=== PATIENT | male | born 1985 | race African-American/Black ===

== ENCOUNTER 2019-12-15 23:52 | Emergency (ER) | payer SELFPAY ==
[2019-12-16] MEDS ORDERED: Dexamethasone 4 mg/ml Vial ONE (00:14)
== END 2019-12-16 00:13 | disposition home or self-care (01) ==
LOC: BURERS 23:52
DX: J45.901 Unspecified asthma with (acute) exacerbation (principal); F17.210 Nicotine dependence, cigarettes, uncomplicated; Z79.51 Long term (current) use of inhaled steroids
CPT/HCPCS: 94640; J1100; J7620

== ENCOUNTER 2021-11-05 01:51 | Emergency (ER) | payer SELFPAY ==
[2021-11-05 02:29] LABS: #Basophils 0.2 thou/uL (0.0-0.2); #Eosinphils 0.3 thou/uL (0.0-0.7); #Lymphocytes 2.4 thou/uL (1.20-3.40); #Monocytes 1.1 thou/uL (0.11-0.59); #Neutrophils 12.4 thou/uL (1.40-6.50); %Eosinophils 1.8 % (0.0-10.0); %Lymphocytes 14.4 % (21.0-51.0); %Monocytes 6.9 % (0.0-10.0); %Neutrophils 75.9 % (42.0-75.0); Hemoglobin 13.2 g/dL (14.0-18.0); Mean Corpuscular HGB CONC 32.6 g/dL (32.0-36.0); Mean Corpuscular Volume 91.9 fL (78.0-98.0); Mean Platelet Volume 7.4 fL (7.4-10.4); Platelet Count 303 thou/uL (130-400); RBC Distribution Width 13.6 % (11.5-14.5); Red Blood Cell (RBC) Count 4.41 mill/uL (4.70-6.10); White Blood Cell (WBC) Count 16.3 thou/uL (4.8-10.8)
[2021-11-05] MEDS ORDERED: Acetaminophen 500 MG TAB ONE (02:41)
[2021-11-05] MEDS ORDERED: Cefepime 2 GM VIAL ONE (02:41)
[2021-11-05] MEDS ORDERED: Ketorolac Tromethamine 30 MG/ML VIAL ONE (02:41)
[2021-11-05 02:45] LABS: ALT (SGPT) 34 U/L (8-55); AST (SGOT) 30 U/L (5-34); Albumin 4.2 g/dL (3.5-5.0); Alkaline Phosphatase 62 U/L (40-110); Anion Gap 18 mmol/L (10-20); BUN (Urea Nitrogen) 10 mg/dL (8.9-20.6); Bilirubin, Total 0.4 mg/dL (0.2-1.2); CK (CPK) 188 U/L (30-200); Calc. Creatinine Clearance 0 mL/min (70-130); Calcium 9.6 mg/dL (7.8-10.44); Carbon Dioxide 21 mmol/L (22-29); Chloride 100 mmol/L (98-107); Globulin 4.3 g/dL (2.4-3.5); Glucose 120 mg/dL (70-105); Potassium 3.9 mmol/L (3.5-5.1); Protein, Total 8.5 g/dL (6.0-8.3); Sodium 135 mmol/L (136-145)
[2021-11-05] MEDS ORDERED: Ondansetron PF 4 MG/2 ML Vial ONE (02:55)
== END 2021-11-05 05:15 | disposition home or self-care (01) ==
LOC: BURERS 01:51
DX: L02.412 Cutaneous abscess of left axilla (principal); L05.91 Pilonidal cyst without abscess; J45.909 Unspecified asthma, uncomplicated
CPT/HCPCS: 36415; 80053; 82550; 83605; 85025; 87040; 96374; 96375; J0692; J1885; J2405; J3370

== ENCOUNTER 2022-09-10 22:33 | Emergency (ER) | payer OTHER, SELFPAY | END 2022-09-10 23:50 | disposition home or self-care (01) | LOC: BURERS 22:33 | DX: B34.9 Viral infection, unspecified (principal); J45.909 Unspecified asthma, uncomplicated; Z79.899 Other long term (current) drug therapy; F17.210 Nicotine dependence, cigarettes, uncomplicated; Z20.822 Contact with and (suspected) exposure to COVID-19 | CPT/HCPCS: 87081; 87430; 87804; 99283; U0003; U0005 ==

== ENCOUNTER 2025-03-15 16:54 | Emergency (ER) | payer OTHER, SELFPAY ==
[2025-03-15] MEDS ORDERED: Cephalexin 250 MG CAP ONE (17:29)
[2025-03-15] MEDS ORDERED: Sulfameth/Trimethoprim DS 800-160mg TAB ONE (17:30)
== END 2025-03-15 17:34 | disposition home or self-care (01) ==
LOC: BURERS 16:54
DX: N49.2 Inflammatory disorders of scrotum (principal); J45.909 Unspecified asthma, uncomplicated; F17.210 Nicotine dependence, cigarettes, uncomplicated; Z79.51 Long term (current) use of inhaled steroids
CPT/HCPCS: 99283